=== PATIENT | male | born 1935 | race Hispanic/Latino ===

== ENCOUNTER 2022-10-24 09:43 | Emergency (ER) | payer BC, MEDICARE ==
[~2022-10-24] VITALS: Ht 190.5 cm; Wt 61.2 kg
[2022-10-24 10:05] LABS: BASOPHILS # (AUTO) 0.1 (0.0-0.1); BASOPHILS % 0.8 % (0.0-1.0); EOSINOPHILS # (AUTO) 0.1 (0.0-0.4); EOSINOPHILS % 2.2 % (0.0-6.0); HEMATOCRIT 37.2 % (38.2-49.6); HEMOGLOBIN 12.7 g/dL (14.0-18.0); LYMPHOCYTES # (AUTO) 1.6 (1.0-3.2); LYMPHOCYTES % 25.4 % (18.0-39.1); MEAN CORPUSCULAR HEMOGLOBIN 33.6 pg (28-32); MEAN CORPUSCULAR HGB CONC 34.1 g/dL (31-35); MEAN CORPUSCULAR VOLUME 98.4 fL (81-99); MONOCYTES # (AUTO) 0.5 (0.2-0.8); MONOCYTES % 8.3 % (4.4-11.3); PLATELET COUNT 242 x10e3/uL (140-360); RED BLOOD COUNT 3.78 x10e6/uL (4.3-5.7); RED CELL DISTRIBUTION WIDTH 13.2 % (11.7-14.4)
[2022-10-24 10:21] LABS: INR 0.96; PARTIAL THROMBOPLASTIN TIME 28.9 seconds (23.8-35.5); PROTHROMBIN TIME 13.3 seconds (11.9-14.5)
[2022-10-24 10:26] LABS: ALBUMIN 3.5 g/dL (3.5-5.0); ANION GAP 14.8 mmol/L (8-16); CALCIUM 8.9 mg/dL (8.4-10.2); CREATININE, SERUM 0.97 mg/dL (0.72-1.25); POTASSIUM 3.8 mmol/L (3.5-5.1)
[2022-10-24] MEDS ORDERED: SODIUM CHLORIDE 0.9% 100 ML ONE (10:45)
[2022-10-24] MEDS ORDERED: IOPAMIDOL 370 MG/ML 100 ML INFUS..BTL INJ ONE (10:45)
[2022-10-24] MEDS ORDERED: DEXTROSE 50% SYRINGE 50 ML IV STA (11:09)
[2022-10-24] MEDS ORDERED: DEXTROSE 50% SYRINGE 50 ML IV ONE (11:11)
[2022-10-24 14:26] VITALS: O2SAT 97
== END 2022-10-24 14:38 | disposition home or self-care (01) ==
LOC: ER 09:52
DX: R20.0 Anesthesia of skin (principal); E16.2 Hypoglycemia, unspecified; I10 Essential (primary) hypertension; Z95.810 Presence of automatic (implantable) cardiac defibrillator
CPT/HCPCS: 36415; 70496; 70498; 71045; 80053; 82550; 84484; 85025; 85610; 85730; 93005; 99284; J7050; J7799; Q9967